=== PATIENT | female | born 1945 | race Caucasian/White ===

== ENCOUNTER 2016-10-21 21:13 | Emergency (ER) | payer MEDICARE, OTHER ==
[2016-10-22] MEDS ORDERED: OLANZapine 10 MG VIAL IM STA (07:39)
[2016-10-22] MEDS ORDERED: OLANZapine 10 MG VIAL IM ONE (07:44)
[2016-10-22] MEDS ORDERED: WATER FOR INJECTION,STERILE 10 ML ONE (07:44)
== END 2016-10-22 08:06 ==
DX: F29 Unspecified psychosis not due to a substance or known physiological condition (principal); Z02.89 Encounter for other administrative examinations
CPT/HCPCS: 36415; 80053; 80306; 80307; 81003; 83690; 84443; 85025; 99284; 99285; G0480

== ENCOUNTER 2016-10-22 08:13 | Outpatient (CLI) | payer MEDICARE, OTHER | END 2016-10-22 08:14 | DX: F29 Unspecified psychosis not due to a substance or known physiological condition (principal) | CPT/HCPCS: A0170; A0425; A0428 ==